=== PATIENT | male | born 1970 | race Caucasian/White ===

== ENCOUNTER → 2024-07-31 | Outpatient (REF) | payer BC ==
[~2024-07-31] MED LIST: NITROGLYCERIN 0.4 MG SUBL ONE
[2024-07-31 09:07] LABS: CREATININE, SERUM 1.82 mg/dL (0.72-1.25)
== END ==
LOC: EDBD 07-17 08:30 → CT 08:00
PROVIDERS: ATTEND Internal Medicine Cardiovascular Disease
DX: I50.22 Chronic systolic (congestive) heart failure (principal); I25.10 Atherosclerotic heart disease of native coronary artery without angina pectoris
CPT/HCPCS: 36415; 75574; 82565; 84520